=== PATIENT | male | born 1985 | race Caucasian/White ===

== ENCOUNTER 2018-11-14 08:54 | Emergency (ER) | payer SELFPAY ==
[2018-11-14 09:00] VITALS: BP 105/90; PULSE 89; RESP 16; TEMP 36.6; O2SAT 97
--- NOTE | 2018-11-14 09:15 | W.ED.GENAD ---
Discharge Plan Disposition Patient Disposition: HOME Condition: Stable Discharge Details Chief Complaint: Orthopedic Clinical Impression: Chronic neck pain, Cervical paraspinal muscle spasm Primary Care Provider: None,None ED Provider: Latia Rivero Home Meds and New Rx's Prescriptions: New ibuprofen 600 mg tablet 600 mg PO QID PRN (Reason: pain) Qty: 20 RF: 0 methocarbamol 750 mg tablet 750 mg PO QID PRN (Reason: muscle spasm) Qty: 10 RF: 0 Discharge Instructions Instructions: Cervical Strain (ED), Chronic Neck Pain (GEN) Additional Instructions: Alternate ice and heat to the affected area several times daily for 20 minutes at a time. Take the ibuprofen and methocarbamol as needed and directed. Follow-up with physical therapy for evaluation and treatment. You will receive a call from care management regarding a follow-up appointment with a primary care doctor. Return immediately to the emergency department if you develop any worsening or new concerning symptoms. Stand Alone Forms: Physical Therapy Referral Discharge Data Discharge Date/Time-TO BE ENTERED AT DEPARTURE: 11/14/18 10:01 Discharge Physician: Latia Rivero Medical Decision Making 33yo M w/ R sided neck and shoulder pain x 6 months. 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 Denies chest pain or paresthesias/weakness. Pt has limitation of head/neck rotation due to pain. No focal deficits. Neurovascularly intact. No rash, infection or trauma noted. Appears c/w cervical/shoulder strain/spasm. Do not see an indication for imaging and pt is agreeable. Pt took motrin prior to arrival. Will give a dose of muscle relaxer. Will send with script for NSAIDs, muscle relaxers and physical therapy if no relief with meds. Pt placed on care management list for f/u with a pcp and to return here if worse. HPI General Mode of arrival: ambulatory. Date/Time Provider Initiated Documentation: 11/14/18 08:57. Limitations to Documentation: no limitations. Information obtained by: patient. HPI Narrative: Pt is a 33yo M who presents to the ED w/ a c/o R sided neck and R upper shoulder pain for the past 6 months, pain worse this morning. Pt states he works as a cardroom manager and is frequently lifting and carrying heavy pots and boxes over his shoulders. Pt denies weakness or numbness in arm. He denies fever. He has taken motrin and tylenol occasionally for this pain. Related Data Home Medications Medication Instructions Recorded Confirmed ibuprofen 600 mg PO QID PRN #20 tab 11/14/18 methocarbamol 750 mg PO QID PRN #10 tab 11/14/18 Previous Rx's Medication Instructions Recorded ibuprofen 600 mg PO QID PRN #20 tab 11/14/18 methocarbamol 750 mg PO QID PRN #10 tab 11/14/18 Allergies Allergy/AdvReac Type Severity Reaction Status Date / Time No Known Allergies Allergy Unverified 03/01/16 16:48 General Stated Complaint: Orthopedic MARSHA: 4 Review of Systems Review of Systems All systems reviewed & are unremarkable except as noted in HPI and below Constitutional Reports as per HPI, Denies chills and Denies fever(s) Eyes Denies blurry vision ENT Denies dizziness, Denies sore throat and Denies throat swelling Cardiovascular Denies chest pain and Denies dyspnea Respiratory Denies cough and Denies dyspnea Gastrointestinal Denies abdominal pain, Denies diarrhea and Denies vomiting Genitourinary Denies hematuria and Denies dysuria Musculoskeletal Denies back pain, Denies numbness and Reports other (neck pain) Comments: R shoulder pain Integumentary/Breasts Denies lesions and Denies rash Neurologic Denies dizziness, Denies focal weakness and Denies numbness Allergic/Immunologic Denies throat swelling [facility] Medical History No significant past medical history (Acute) Surgical History No significant past surgical history (Acute) Social History Smoking/Tobacco Use Status: Current every day Tobacco Type: cigarettes Alcohol Intake: never Drug use: Never Substance use type: marijuana Do you feel safe in your relationship?: Yes Exam Const General: cooperative, healthy appearing and no acute distress HENMT Head: normal to inspection Face and sinus: normal facial exam Eyes General: appearance normal, both eyes and all related structures Pupils: PERRL EOM: EOM intact bilaterally Neck Neck: normal visual inspection and No submandibular swelling Lymphatic: no lymphadenopathy noted Chest Chest: normal inspection of the chest and no tenderness Resp Effort & Inspection: normal respiratory effort and able to speak in complete sentences Auscultation: clear to auscultation bilaterally Cardio Rate: regular rate Rhythm: regular rhythm GI Inspection: normal to inspection Palpation: soft, not firm, not rigid and nontender Auscultation: normal bowel sounds Male General Exam: Yes normal external exam Back/Spine/Pelvis Cervical Spine: cervical muscular tenderness (R inferior paraspinal region near insertion of trapezius), pain with cervical ROM (Pain/limitation w/ R head rotation/sidebending/extension), No cervical spasm and No cervical spinal tenderness Thoracic/Lumbar Spine: thoracic and lumbar spine normal to inspection Pelvis: no pain with anterior-posterior compression Skin General skin exam: no rashes or lesions noted Neuro General: alert, awake and oriented x3 Cognition: normal cognition Speech: speech normal Motor: muscle tone normal throughout Sensory Exam: no sensory deficits noted Extrem General: normal to inspection, full ROM, normal capillary refill, no calf tenderness bilaterally and no edema Other: Pain in R trapezius with palpation and abduction and range of motion of R shoulder. B/L radial/ulnar pulses intact. No rashes, infection or trauma noted. Psych Appearance: grossly normal Mental Status: mental status grossly normal Speech and Movement: speech and movement normal Affect: normal affect Course Vital Signs Temperature 97.9 F 11/14/18 09:00 Pulse 89 11/14/18 09:00 Respiratory Rate 16 11/14/18 09:00 Blood Pressure 105/90 11/14/18 09:00 Pulse Oximetry 97 11/14/18 09:00 Temperature 97.9 F 11/14/18 09:00 Pulse 89 11/14/18 09:00 Respiratory Rate 16 11/14/18 09:00 Respiratory Effort Non-Labored 11/14/18 09:00 Blood Pressure 105/90 11/14/18 09:00 Blood Pressure Position Sitting 11/14/18 09:00 Pulse Oximetry 97 11/14/18 09:00 Oxygen Delivery Method Room Air 11/14/18 09:00 Oxygen Flow Rate 0 11/14/18 09:00
[2018-11-14] MEDS: Methocarbamol 500 MG TAB PO (09:47)
== END 2018-11-14 10:01 | disposition home or self-care (01) ==
PROVIDERS: Emergency Provider Physician Assistant
DX: M62.838 Other muscle spasm (principal); M54.2 Cervicalgia; G89.29 Other chronic pain; X50.3XXA Overexertion from repetitive movements, initial encounter
CPT/HCPCS: 99283

== ENCOUNTER 2019-03-19 08:15 | Emergency (ER) | payer SELFPAY ==
[2019-03-19 08:23] VITALS: BP 144/97; PULSE 88; RESP 16; TEMP 36.7; O2SAT 96
[2019-03-19] MEDS: Bupivacaine 0.5% Pres-Free 30 ML VIAL (08:55)
[2019-03-19] MEDS: Ibuprofen 600 MG TAB PO (09:01)
--- NOTE | 2019-03-19 09:25 | ED.GENADUL_ITS ---
Discharge Plan Disposition Patient Disposition: HOME Condition: Improving Discharge Details Chief Complaint: Nk/Back Pain Clinical Impression: Cervical myofascial strain Primary Care Provider: None,None ED Provider: Ba Calero Home Meds and New Rx's Prescriptions: No Action ibuprofen 600 mg tablet 600 mg PO QID PRN (Reason: pain) Qty: 20 RF: 0 Discharge Instructions Instructions: Cervical Strain (ED) Additional Instructions: 1. Drink plenty of fluids. 2. Ibuprofen 600 mg every 6 hours and/or acetaminophen 1000 mg every 4 hours up to 5 times a day as needed for pain. 3. Wear sling as needed for comfort. 4. Follow-up with a physical therapist for management of recurrent pain. Return for worsening pain, fever, palpitations, arm tingling or numbness, or for any other concerning condition Discharge Data Discharge Date/Time-TO BE ENTERED AT DEPARTURE: 03/19/19 08:55 Medical Decision Making 33-year-old gentleman presents with acute on chronic pain associated with recent traumatic injury. History and exam suggestive of soft tissue injury/cervical strain. Clinically improved after a paracervical soft tissue injection was performed by myself. Reviewed outpatient management including using a sling as needed, OTC analgesia, and follow-up with physical therapy. Given usual customary return instructions prior to discharge. Medical Records Medical records reviewed: Yes I reviewed the patient's medical records. HPI 43-year-old gentleman with a past medical history which includes a previous injury to his right head and neck with chronic recurrent paresthesias and pain in his right neck, trapezius, and proximal upper extremity. 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 He describes slipping and falling with impact to his right parietal region and shoulder. He describes having a concussion with headache and mild disorientation. The symptoms have resolved. However, he has had persistent, accelerating pain in his right inferior lateral neck, trapezius, and upper extremity. Symptoms are identical nature to his chronic pain from his remote injury but worse. He has taken ibuprofen once with no significant improvement in symptoms. Otherwise, has had no other intervention. Has occasional global paresthesias of his hand. Denies other significant injury including no other extremity injury, chest contusion, abdominal contusion,, or back injury. Denies fever/chills, dyspnea, palpitations, focal extremity weakness General Date/Time Provider Initiated Documentation: 03/19/19 08:23 . Related Data Home Medications Medication Instructions Recorded Confirmed ibuprofen 600 mg PO QID PRN #20 tab 11/14/18 03/19/19 Previous Rx's Medication Instructions Recorded ibuprofen 600 mg PO QID PRN #20 tab 11/14/18 Allergies Allergy/AdvReac Type Severity Reaction Status Date / Time No Known Allergies Allergy Unverified 03/19/19 08:57 General Stated Complaint: Nk/Back Pain MARSHA: 4 Review of Systems All systems reviewed & are unremarkable except as noted in HPI and below PFSH Medical History No significant past medical history (Acute) Surgical History No significant past surgical history (Acute) Social History Smoking/Tobacco Use Status: Current every day Tobacco Type: cigarettes Alcohol Intake: never Drug use: Never Substance use type: marijuana Do you feel safe at home: Yes Do you feel safe in your relationship?: Yes Exam Narrative Exam Narrative: Nursing note and vital signs have been reviewed and noted. GENERAL: alert, active, no acute distress, well -hydrated, well-nourished HEENT: atraumatic/normocephalic, PERRLA, EOMI, conjunctiva clear, external ears/canals normal, nasal mucosa normal NECK: supple, full range of motion, no mass, normal lymphadenopathy, no thyromegaly; moderate right paraspinal soft tissue tenderness which reproduces subjective pain. CARDIOVASCULAR: nl pulses, no edema PULMONARY: nl effort, no audible wheezing or stridor, ABDOMEN: non-distended, EXTREMITY: normal muscle tone, all joints with FROM, no deformity; tenderness along the right superior trapezius extending to the glenohumeral joint. There is no evidence of significant bony injury or joint disruption. Normal neurovascular exam distally. SKIN: no exanthem appreciated NEURO: gross motor exam normal, normal stance and gait PSYCH: alert and oriented, Course Vital Signs Vital signs: Vital Signs Temperature 98.1 F 03/19/19 08:23 Pulse 88 03/19/19 08:23 Respiratory Rate 16 03/19/19 08:23 Blood Pressure 144/97 H 03/19/19 08:23 Pulse Oximetry 96 03/19/19 08:23 Temperature 98.1 F 03/19/19 08:23 Temperature Source Skin 03/19/19 08:23 Pulse 88 03/19/19 08:23 Respiratory Rate 16 03/19/19 08:23 Respiratory Effort Non-Labored 03/19/19 08:55 Blood Pressure 144/97 H 03/19/19 08:23 Blood Pressure Position Sitting 03/19/19 08:23 Pulse Oximetry 96 03/19/19 08:23 Oxygen Delivery Method Room Air 03/19/19 08:23 Oxygen Flow Rate 0 03/19/19 08:23 Pain Level 7 03/19/19 09:01 Procedures Other Description: Paracervical soft tissue injection. Landmarks identified midline at C7. Skin prepped and sterile fashion using alcohol swabs. Skin locally anesthetized with free spray. 1.5 ml 0.5% bupivacaine injected bilaterally into soft tissue after aspirating for inadvertent vessel puncture. Patient tolerated procedure well without any complications. Clinical improvement on reassessment.
== END 2019-03-19 09:07 | disposition home or self-care (01) ==
LOC: ER 08:33
PROVIDERS: Emergency Provider Emergency Medicine
DX: S16.1XXA Strain of muscle, fascia and tendon at neck level, initial encounter (principal); W01.0XXA Fall on same level from slipping, tripping and stumbling without subsequent striking against object, initial encounter
CPT/HCPCS: 99282; L3650

== ENCOUNTER 2019-07-01 10:24 | Emergency (ER) | payer SELFPAY ==
[2019-07-01 10:31] VITALS: BP 108/72; PULSE 97; RESP 16; TEMP 36.6; O2SAT 98
--- NOTE | 2019-07-01 10:45 | DI.RAD_ITS ---
EXAM: XR RIBS RT W PA LAT CHEST CLINICAL HISTORY: right rib pain, cough TECHNIQUE: COMPARISON: No exams were available for comparison FINDINGS: PA and lateral chest and three views of the ribs were obtained. The heart is not enlarged. The lung s are clear and well expanded. No pleural effusion. No evidence of rib fracture. IMPRESSION:
--- NOTE | 2019-07-01 10:46 | W.ED.GENAD ---
Discharge Plan Disposition Patient Disposition: HOME Condition: Stable Discharge Details Chief Complaint: Chest/Rib Clinical Impression: Chest injury Primary Care Provider: None,None ED Provider: Millicent Parada Home Meds and New Rx's Prescriptions: No Action ibuprofen 600 mg tablet 600 mg PO QID PRN (Reason: pain) Qty: 20 RF: 0 Discharge Instructions Instructions: Chest Wall Pain (ED) Additional Instructions: Ice or heat for discomfort as discussed. Motrin or Tylenol for discomfort if needed. Rest activities as tolerated. Deep breathing exercises every 1-2 hours as discussed. Follow-up promptly with your primary care doctor for any persistence of pain. Your x-ray does not reveal obvious fracture today or any signs of pneumonia in the lung. Consider stopping smoking. Return for any worsening, concerns or alarming symptoms sooner if needed Discharge Data Discharge Date/Time-TO BE ENTERED AT DEPARTURE: 07/01/19 12:36 Medical Decision Making Is a very pleasant 33-year-old gentleman presenting for complaints of right rib pain for the last week. Patient reports he noted onset of pain while snowboarding while twisting. Patient denies any specific fall or injury which he recalls. Patient denies difficulty being of shortness of breath or wheezing. Patient does have a baseline cough which is present on a daily basis which she attributes to smoking marijuana and cigarettes. Patient reports cough is unchanged. Patient does report moderate pain while coughing. Patient also reports increase in pain when changing position. On exam patient has focal tenderness in the right anterior chest wall. No associated abdominal pain. Clear breath sounds. Will check chest x-ray and include ribs on the right. Patient is in no apparent distress. Patient has no increase in respiratory effort. Offered Motrin or Tylenol at this time and declines. Vital signs reviewed and stable. Patient's x-ray of chest as well as right ribs reveal no acute abnormalities. No obvious fracture identified. No mass or signs of pneumonia. Offered patient conservative treatments in addition to Lidoderm patches. Patient declines Lidoderm patches. Do breathing exercises discussed. Expectations of improvement discussed. Use of ice and heat discussed. Patient reports his understanding. Patient remained stable throughout his emergency room course. Patient requesting discharge home at this time. The patient was stable and requested discharge. Prior to discharge, my usual and customary return precautions were reviewed with the patient - this included follow-up instructions and reasons to return to the Emergency Department if conditions worsens, does not improve as expected, or other new concerns arise. HPI General Date/Time Provider Initiated Documentation: 07/01/19 10:34. HPI Narrative: This is a 33-year old patient presenting to the emergency room today for right chest wall pain. Patient reports he may have injured his right chest wall when twisting while snowboarding 1 week ago. Patient was aware of pain at the time but denies any focal trauma. Patient reports since that time he is been aware of pain when coughing or taking deep breaths. Patient also reports increase in pain when changing positions. Patient indicates a focal area on the right anterior chest wall as maximum site of pain. Denies any back pain. Patient does have a baseline cough daily which he attributes to smoking marijuana. Patient also smokes cigarettes. Patient denies vaping. Patient denies difficulty breathing shortness of breath or wheezing. Patient does have a history of asthma as a child but reports no sensation of tightness in his chest. Patient denies any chest pain at rest. No abdominal pain, nausea, vomiting associated. No bowel changes. Urinating without difficulty. No hematuria. No other concerns or complaints at this time. Denies headache, dizziness or upper respiratory symptoms. No ill feeling. Related Data Home Medications Medication Instructions Recorded Confirmed ibuprofen 600 mg PO QID PRN #20 tab 11/14/18 07/01/19 Previous Rx's Medication Instructions Recorded ibuprofen 600 mg PO QID PRN #20 tab 11/14/18 Allergies Allergy/AdvReac Type Severity Reaction Status Date / Time No Known Allergies Allergy Unverified 07/01/19 10:35 General Stated Complaint: Chest/Rib MARSHA: 3 Review of Systems All systems reviewed & are unremarkable except as noted in HPI and below Constitutional Constitutional: Denies chills, Denies fatigue, Denies fever(s), Denies headache(s), Denies malaise and Denies snoring ENT Ears, Nose, Mouth, and Throat: Denies otalgia, Denies headache(s), Denies nasal congestion, Denies neck pain, Denies sinus pain, Denies sinus pressure and Denies sore throat Cardiovascular Cardiovascular: Denies dyspnea and Denies dyspnea on exertion Respiratory Respiratory: Reports cough, Denies excessive phlegm production, Reports pain on inspiration, Reports pain with cough, Denies dyspnea, Denies dyspnea on exertion, Denies snoring and Denies wheezing Gastrointestinal Gastrointestinal: Denies abdominal pain, Denies diarrhea, Denies nausea and Denies vomiting Genitourinary Genitourinary: Denies hematuria, Denies dysuria, Denies urinary frequency and Denies urinary hesitancy Musculoskeletal Musculoskeletal: Denies abnormal gait, Denies back pain and Denies neck pain Integumentary/Breasts Skin/Breast: Denies erythema and Denies rash Neurologic Neurologic: Denies abnormal gait and Denies headache(s) Endocrine Endocrine: Denies fatigue Allergic/Immunologic Allergic/Immunologic: Denies wheezing [facility] Medical History No significant past medical history (Acute) Social History Smoking/Tobacco Use Status: Current every day Tobacco Type: cigarettes Alcohol Intake: never Drug use: Daily Substance use type: marijuana Do you feel safe at home: Yes Do you feel safe in your relationship?: Yes Exam Narrative Exam Narrative: CONST: Healthy appearing patient, in no acute distress. Well hydrated. Alert and oriented. HENMT: Head nomocephalic, normal to inspection. Atraumatic. Hearing grossly normal. TMs appear normal bilaterally. No pharyngeal erythema. EYES: General normal appearance. Alignment normal. Eyelids normal. Conjunctiva normal. NECK: Normal visual inspection. FROM. Trachea midline. No Midline tenderness. No cervical lymphadenopathy CHEST: Normal insepection of the chest. Pain with palpation of the right anterior chest wall, reproducible with palpation. No obvious crepitus. No overlying skin changes. RESP: Normal respiratory effort. Speaking full sentences. No cough. No audible wheezing. No retractions. Breath sounds clear, full and equal bilaterally. No wheezing, rhonchi or rales. CARDIO: No JVD. No murmur, regular rate and rhythm GI: Bowel sounds present in all 4 quadrants, abdomen is soft, nontender. No peritoneal signs, rebound or guarding. Specifically no tenderness in the right upper quadrant. Back: No CVA tenderness present bilaterally SKIN: Normal. Dry. No rashes. NEURO: Alert and awake. Speech clear. PSYCH: Normal affect. Cooperative. Course Vital Signs Vital signs: Vital Signs Temperature 36.6 C 07/01/19 10:31 Pulse 97 H 07/01/19 10:31 Respiratory Rate 16 07/01/19 10:31 Blood Pressure 108/72 07/01/19 10:31 Pulse Oximetry 98 07/01/19 10:31 Temperature 36.6 C 07/01/19 10:31 Temperature Source Skin 07/01/19 10:31 Pulse 97 H 07/01/19 10:31 Respiratory Rate 16 07/01/19 10:31 Respiratory Effort Non-Labored 07/01/19 10:31 Blood Pressure 108/72 07/01/19 10:31 Pulse Oximetry 98 07/01/19 10:31 Oxygen Delivery Method Room Air 07/01/19 10:31 Oxygen Flow Rate 0 07/01/19 10:31 Pain Level 9 07/01/19 10:31
--- NOTE | 2019-07-01 12:09 | DI.VRAD_ITS ---
PROCEDURE INFORMATION: Exam: XR Right Ribs Exam date and time: 07/01/2019 10:58 AM Age: 33 years old Clinical indication: Other: Rib pain after coughing; Painful respiration; Additional info: Bb marker used on rib imaging for pain site TECHNIQUE: Imaging protocol: XR Right ribs. Views: 2 views. COMPARISON: No relevant prior studies available. FINDINGS: Bones/joints: There is no evidence of acute fracture. Soft tissues: Normal. IMPRESSION: There is no evidence of acute fracture. PROCEDURE INFORMATION: Exam: XR Chest, 2 Views Exam date and time: 07/01/2019 10:58 AM Age: 33 years old Clinical indication: Other: Rib pain after coughing; Painful respiration; Additional info: Bb marker used on rib imaging for pain site TECHNIQUE: Imaging protocol: XR of the chest Views: 2 views. COMPARISON: No relevant prior studies available. FINDINGS: Lungs: Unremarkable. No consolidation. Pleural space: Unremarkable. No pleural effusion. No pneumothorax. Heart/Mediastinum: Unremarkable. No cardiomegaly. Bones/joints: Unremarkable. IMPRESSION: No acute findings. Dictated and Authenticated by: Leeroy Chairez MD. Ordering:MHEUL Ricks MD
[2019-07-01 12:36] VITALS: BP 112/64; PULSE 92; RESP 16; TEMP 36.7; O2SAT 97
== END 2019-07-01 12:36 | disposition home or self-care (01) ==
PROVIDERS: Emergency Provider Physician Assistant
DX: S29.091A Other injury of muscle and tendon of front wall of thorax, initial encounter (principal); X50.9XXA Other and unspecified overexertion or strenuous movements or postures, initial encounter; Y93.23 Activity, snow (alpine) (downhill) skiing, snowboarding, sledding, tobogganing and snow tubing; F17.210 Nicotine dependence, cigarettes, uncomplicated
CPT/HCPCS: 99283; 71046; 71100

== ENCOUNTER 2021-03-22 07:45 | Emergency (ER) | payer SELFPAY ==
[2021-03-22 07:49] VITALS: BP 128/77; PULSE 88; RESP 16; TEMP 36.9; O2SAT 98
--- NOTE | 2021-03-22 08:15 | ED.GENADUL_ITS ---
Discharge Plan Disposition Patient Disposition: HOME Condition: Stable Discharge Details Clinical Impression: Corneal abrasion, right Primary Care Provider: None,None ED Provider: Marcos Cárdenas Home Meds and New Rx's Prescriptions: New erythromycin 5 mg/gram (0.5 %) ointment 0.5 inch ophthalmic (eye) QID Qty: 3.5 RF: 0 Continued ibuprofen 600 mg tablet 600 mg PO QID PRN (Reason: pain) Qty: 20 RF: 0 Discharge Instructions Instructions: Erythromycin (Into the eye), Corneal Abrasion (ED) Additional Instructions: Please follow-up with eye home health care respiratory therapist. Use erythromycin: apply 0.5inch to right eye 4 times a day for the next 1 week. Return to the emergency department immediately for any worsening or new concerning symptoms. I recommend that you have COVID-19 vaccination as soon as possible to prevent severe COVID-19 disease. Your tetanus vaccination is up-to-date - last given 2015. Stand Alone Forms: Work Release Referrals: [facility] [Outside] Medical Decision Making 35yo m right eye corneal abrasion. Tetatraine applied and pain improved. Erythromycin administered. Tetanus utd. Usual and customary discharge instructions reviewed the patient. HPI General Mode of arrival: ambulatory . Date/Time Provider Initiated Documentation: 03/22/21 08:05 . Limitations to Documentation: no limitations . Information obtained by: patient . HPI Narrative: 35yo m here with injury to right eye. 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 He had pain in his eye since injury. Pain worse today now moderate. No modifiers. No blurred vision. No other symptoms. Related Data Home Medications Medication Instructions Recorded Confirmed ibuprofen 600 mg PO QID PRN #20 tab 11/14/18 03/22/21 erythromycin 0.5 inch OPHTHALMIC (EYE) QID #3.5 03/22/21 g Previous Rx's Medication Instructions Recorded ibuprofen 600 mg PO QID PRN #20 tab 11/14/18 erythromycin 0.5 inch OPHTHALMIC (EYE) QID #3.5 03/22/21 g Allergies Allergy/AdvReac Type Severity Reaction Status Date / Time No Known Allergies Allergy Unverified 03/22/21 07:53 General Stated Complaint: EyeProblem MARSHA: 4 Review of Systems Constitutional Constitutional: Denies headache(s) Eyes Eyes: Reports as per HPI ENT Ears, Nose, Mouth, and Throat: Denies headache(s) Neurologic Neurologic: Denies headache(s) PFS Medical History No significant past medical history Surgical History No significant past surgical history Social History Smoking/Tobacco Use Status: Current every day Tobacco Type: cigarettes Smoking risk assessment performed?: Yes Alcohol Intake: never Drug use: Daily Substance use type: marijuana Do you feel safe at home: Yes Do you feel safe in your relationship?: Yes Exam Const General: cooperative and no acute distress HENMT Head: normocephalic and atraumatic Mouth: moist mucous membranes Eyes Conjunctivae: conjunctivae normal Sclera: normal sclerae Cornea: corneas abnormal on the right fluorescein used and abrasion linear and at the following clock position (10); with no foreign body noted and without ulcerations Pupils: PERRL EOM: EOM intact bilaterally Neuro General: patient alert, patient awake and tone normal Course Vital Signs Vital signs: Vital Signs Temperature 36.9 C 03/22/21 07:49 Pulse 88 03/22/21 07:49 Respiratory Rate 16 03/22/21 07:49 Blood Pressure 128/77 03/22/21 07:49 Pulse Oximetry 98 03/22/21 07:49 Temperature 36.9 C 03/22/21 07:49 Temperature Source Skin 03/22/21 07:49 Pulse 88 03/22/21 07:49 Respiratory Rate 16 03/22/21 07:49 Respiratory Effort 03/22/21 07:49 Blood Pressure 128/77 03/22/21 07:49 Blood Pressure Position Sitting 03/22/21 07:49 Pulse Oximetry 98 03/22/21 07:49 Pain Level 6 03/22/21 07:49
[2021-03-22] MEDS: Tetracaine 0.5% 4 ML BTL (08:18)
[2021-03-22] MEDS: Fluorescein STRIPS 100/BOX 1 MG (08:18)
--- NOTE | 2021-03-22 08:21 | NUR.NOTE ---
Nursing Note: Referral given to Care Management to establish care with routine follow up. Rosario Sainz
[2021-03-22] MEDS: Erythromycin Ophth Oint 3.5 GM TUBE (08:27)
== END 2021-03-22 08:34 | disposition home or self-care (01) ==
PROVIDERS: Emergency Provider Student in an Organized Health Care Education/Training Program
DX: S05.01XA Injury of conjunctiva and corneal abrasion without foreign body, right eye, initial encounter (principal); W22.8XXA Striking against or struck by other objects, initial encounter
CPT/HCPCS: 99283

== ENCOUNTER → 2021-12-17 20:09 | Outpatient (CLI) | payer OTHER, SELFPAY ==
--- NOTE | 2021-12-17 14:30 | DI.RAD_ITS ---
Exam(s) XR FINGER RT INDEX EXAM: XR FINGER RT INDEX CLINICAL HISTORY: PERSISTENT PAIN, SPRAIN OF RT INDEX FINGER--S63.610A TECHNIQUE: COMPARISON: No exams were available for comparison FINDINGS: Three views were obtained. There is no evidence of acute fracture or dislocation. IMPRESSION: RADIATION DOSE DELIVERED: Total DLP
== END ==
PROVIDERS: Visit Provider Nurse Practitioner Family
DX: S63.610A Unspecified sprain of right index finger, initial encounter (principal); X58.XXXA Exposure to other specified factors, initial encounter
CPT/HCPCS: 73140

== ENCOUNTER 2022-08-10 16:22 | Emergency (ER) | payer OTHER, SELFPAY ==
[2022-08-10 16:25] VITALS: PULSE 87; RESP 18; TEMP 36.7; O2SAT 98
[2022-08-10 16:27] VITALS: BP 136/84
--- NOTE | 2022-08-10 16:30 | DI.RAD_ITS ---
Exam(s) XR FINGER LT INDEX EXAM: XR FINGER LT INDEX CLINICAL HISTORY: pain s/p crush injury. TECHNIQUE: 2D digital imaging was performed. COMPARISON: CR XR FINGER RT INDEX from 12/17/2021 FINDINGS: 3 views There is an acute appearing avulsion fracture off the dorsal base of the distal phalanx with displace ment of the fracture fragment. No radiopaque foreign body. No osseous lesions. IMPRESSION: Displaced fracture dorsal base of the distal phalanx. Mild flexion deformity of the distal phalanx n oted. DATA REPOSITORY: RADIATION DOSE DELIVERED:
--- NOTE | 2022-08-10 16:44 | ED.GENADUL_ITS ---
Discharge Plan Disposition Patient Disposition: Home Discharge Details Clinical Impression: Closed fracture of phalanx of left index finger Primary Care Provider: None,None ED Provider: Oleg Blevins Home Meds and New Rx's Prescriptions: Discontinued erythromycin 5 mg/gram (0.5 %) ointment 0.5 inch ophthalmic (eye) QID Qty: 3.5 0RF Patient Comments: not taking Discharge Instructions Instructions: Finger Fracture (ED) Additional Instructions: Call orthopedics tomorrow to arrange a follow up appointment if you feel more ill, have severe wosening pain or new pain such as chest pain return to the emergency department Medical Decision Making 36 yo male who denies chronic medical problems comes in after he was at work and crushed his left infex finger between two pieces of metal. Denies falls or other injuries. HE arrives stable,caox4 and only has pain in the finger, no other pain elsewhere. His distal left index finger is swollen and tender from the dip joint distally. He has a skin abrasion 2mm in circumference over the anterior pip joint, it is superficial and has no bone visible. HE has intact sensation and cap refill. HE is unable to extend at the dip joint, is able to flex and has intact rom in dip and mcp joint. Will proceed with xrays to evaluate for fracture xray on my read shows fracture at posterior dip joint. Will place in splint, will have him f/u with ortho and return precautions given Differential Diagnosis Differential Diagnosis: fracture, contusion, tendon injury Imaging Data Radiologic Study: Attestation: I personally reviewed and interpreted this imaging study as follows: Imaging: X-Ray My impression: fracture at the posterior dip joint HPI General Mode of arrival: ambulatory . Date/Time Provider Initiated Documentation: 08/10/22 16:37 . Limitations to Documentation: no limitations . Information obtained by: patient . History of Present Illness 36 year old M presents to the emergency department with the chief complaint of left index finger injury, described as moderate, Quality is described as aching, and is localized to the left (hand). Patient started experiencing this hour(s) (1) and it has been constant. Rest improves symptom(s), Movement worsens symptoms . Patient notes no other symptoms.. Patient did receive the following treatments prior to arrival, none Related Data Allergies Allergy/AdvReac Type Severity Reaction Status Date / Time No Known Allergies Allergy Unverified 08/10/22 16:27 General Stated Complaint: Orthopedic MARSHA: 4 Review of Systems All systems reviewed & are unremarkable except as noted in HPI and below Constitutional Constitutional: Denies chills, Denies fever(s) and Denies weakness Cardiovascular Cardiovascular: Denies chest pain and Denies dyspnea Respiratory Respiratory: Denies dyspnea Gastrointestinal Gastrointestinal: Denies abdominal pain, Denies nausea and Denies vomiting Neurologic Neurologic: Denies weakness PFS All Active Problems (Updated 08/10/22 @ 17:02 by Oleg Blevins MD) Closed fracture of phalanx of left index finger (Acute) Sprain of right index finger (Acute) Medical History Chest injury Corneal abrasion, right No significant past medical history Surgical History No significant past surgical history Social History Smoking/Tobacco Use Status: Current every day Tobacco Type: cigarettes Smoking risk assessment performed?: Yes Alcohol Intake: never Drug use: Daily Substance use type: marijuana Do you feel safe at home: Yes Do you feel safe in your relationship?: Yes Exam Const General: no acute distress Orientation: alert HENMT Head: normal to inspection Ears: external ears normal General nose exam: external nose normal Mouth: moist mucous membranes Eyes General: appearance normal, both eyes and all related structures Neck Neck: normal visual inspection Resp Effort & Inspection: normal respiratory effort and able to speak in complete sentences Cardio Rate: regular rate Skin General skin exam: no rashes or lesions noted Neuro General: patient alert and patient oriented x3 Extrem General: capillary refill normal Psych Mental Status: mental status grossly normal Course Vital Signs Vital signs: Vital Signs Temperature 36.7 C 08/10/22 16:25 Pulse 87 08/10/22 16:25 Respiratory Rate 18 08/10/22 16:25 Pulse Oximetry 98 08/10/22 16:25 Temperature 36.7 C 08/10/22 16:25 Temperature Source Oral 08/10/22 16:25 Pulse 87 08/10/22 16:25 Respiratory Rate 18 08/10/22 16:25 Respiratory Effort Normal, Non-Labored 08/10/22 16:27 Blood Pressure 136/84 08/10/22 16:27 Pulse Oximetry 98 08/10/22 16:25 Oxygen Delivery Method Room Air 08/10/22 16:25 Oxygen Flow Rate 0 08/10/22 16:25 PAWSS Have you Been Recently Intoxicated or Drunk Within the Last 30 days?: No Have you Ever Experienced Previous Episodes of Alcohol Withdrawal?: No Have you ever Experienced Withdrawal Seizures?: No Have you ever Experienced Delirium Tremens(DT)s?: No Have you ever undergone Alcohol Rehabilitation Treatment (i.e, inpt ot outpatient treatment programs)?: No Have you ever Experienced Blackouts?: No Have you ever Combined Alcohol with other Downers within the last 90 days?: No Have you ever Combined Alcohol with any other Substance of Abuse during the last 90 days?: No Positive Blood Alcohol level on Presentation? [PCS.BAL]: No Evidence of Increased Autonomic Activity (i.e. HR>120, tremor, sweating, agitation, nausea)?: No Result: 0
== END 2022-08-10 17:18 | disposition home or self-care (01) ==
PROVIDERS: Emergency Provider Emergency Medicine
DX: S67.191A Crushing injury of left index finger, initial encounter (principal); S62.631A Displaced fracture of distal phalanx of left index finger, initial encounter for closed fracture; Y99.0 Civilian activity done for income or pay; W23.0XXA Caught, crushed, jammed, or pinched between moving objects, initial encounter
CPT/HCPCS: 99283; 73140

== ENCOUNTER 2022-08-17 06:08 | Day surgery (SDC) | payer OTHER, SELFPAY ==
[2022-08-17 06:17] VITALS: BP 151/101; PULSE 87; RESP 18; TEMP 37; O2SAT 99
--- NOTE | 2022-08-17 06:29 | W.ANESPRE ---
General Info Date of Service Date Performed: 08/17/22 Height: 5 ft 9 in Weight: 82.2 kg Body Mass Index (BMI): 26.7 Surgical Procedure: Operation Date: 08/17/22 07:40 Proposed Procedure Side Surgeon p Closed Reduction and Pinning LIF Left Judson Gomez MD Meds Allergies and Home Medications Allergies Allergy/AdvReac Type Severity Reaction Status Date / Time No Known Allergies Allergy Unverified 08/17/22 06:32 Home Medication Medication Instructions Recorded Unknown [No Known Home Meds] 08/13/22 Current Visit Medications: Current Medications Generic Name Dose Route Start Last Admin Trade Name Freq PRN Reason Stop Dose Admin Ringer's Solution 1,000 mls @ 80 mls/hr 08/14/22 06:00 IV 09/12/22 23:59 INFUSION MARY IV Miscellaneous Supplies 1 each 08/14/22 06:00 Iv Access IV 09/12/22 23:59 DIRECTED MARY Sodium Chloride 0 ml 08/14/22 06:00 Normal Saline Flush 10 Ml Syr IV 09/12/22 23:59 PRN PRN Sodium Chloride 0 ml 08/14/22 06:00 Normal Saline 10 Ml Vial IJ 09/12/22 23:59 DIRECTED PRN Sterile Water 0 ml 08/14/22 06:00 Water,Injection,Sterile 10 Ml Vial IJ 09/12/22 23:59 DIRECTED PRN PFSH Active Problems Active Problems: Problem Status Onset Code Sprain of right index finger S63.610A Closed fracture of phalanx of left index finger S62.601A Closed mallet fracture of distal phalanx of finger of left hand S62.639A, M20.012 Medical History Medical History Chest injury Pt. states it was a muscle injury in his back Corneal abrasion, right No significant past medical history Surgical History Surgical History No significant past surgical history Tobacco Smoking/Tobacco Use Status: Current every day Tobacco Type: cigarettes Alcohol Alcohol Intake: current Alcohol intake frequency: holidays/special occasions only Substance Use Substance use: Daily Substance use type: marijuana Details: alcohol t-2 marijuana t-1 Vital Signs and Lab Results Vital Signs Most Recent Vital Signs in EMR: Most Recent Vital Signs Temp Pulse Resp BP Pulse Ox 37.0 C 87 18 151/101 H 99 08/17/22 06:17 08/17/22 06:17 08/17/22 06:17 08/17/22 06:17 08/17/22 06:17 Lab Results Blood Type / Crossmatch: No Data to Display Complete Blood Count: No Data to Display Complete Metabolic Panel: No Data to Display Liver Function Panel: No Data to Display Coagulation Panel: No Data to Display Cardiac Panel: No Data to Display Arterial Blood Gas: No Data to Display Venous Blood Gas: No Data to Display Pancreas Panel: No Data to Display Thyroid Panel: No Data to Display Infectious Disease: No Data to Display Blood Cultures: No Data to Display Toxicology Panel: No Data to Display Anesthesia Assessment and Plan Anesthesia History Personal History: No History of General Anesthesia Family History: No Family History of Anesthesia Complications Exercise Tolerance Exercise Tolerance: Metabolic Equivalents>4 Cardiac & Pulmonary Exam Cardiac Exam: Normal S1/S2 Heart Sounds Pulmonary Exam: Clear Bilateral Breath Sounds Implantable Cardiac Device Does patient have a Pacemaker or an ICD?: No Airway Exam Known Difficult Airway: No Mallampati Class: 1 Mouth Opening: Normal (> 3cm) Thyromental Distance: Greater than 3 cm Neck Range of Motion: Full ROM Neck Circumference: Normal Teeth Condition: Normal Dentition ASA Classification ASA Score: ASA 2 Emergency Case?: No NPO Status NPO Status: NPO Clears >2 hours, Solids >8 hours Anesthesia Plan Resuscitation Status: Full Code Anesthesia Technique: General Anesthesia Airway Planned: Natural Airway Monitors Used: Standard Monitors Preoperative Comments:: 36 yo male for pinning left index finger. Sig PMHx: daily smoker (tobacco/cannabis), occ EtOH. Denies major.
[2022-08-17 06:31] VITALS: BMI 26.7
[2022-08-17] MEDS: Lactated Ringers 1,000 ML 80 ML IV (06:45)
--- NOTE | 2022-08-17 07:27 | W.PM.DSUDISC ---
Date of service: 08/17/22 Time of Service: 07:27 Discharge Plan Disposition Patient Disposition: Home Condition: Good Discharge Details Reason For Visit: FX FINGER Attending Provider: Judson Gomez Primary Care Provider: None,None Home Meds and New Rx's Prescriptions: New hydrocodone-acetaminophen 5-325 mg tablet 1 tab PO Q6H PRN (Reason: pain) Qty: 4 0RF acetaminophen 500 mg tablet 500 mg PO Q6H PRN PRN (Reason: pain) Qty: 40 3RF ibuprofen 600 mg tablet 600 mg PO TID PRN (Reason: pain) Qty: 30 3RF Discharge Instructions Additional Instructions: Finger Fracture Fixation Discharge Instructions Activity: You should keep the hand elevated as much as possible for the first few days. You may use the other fingers as tolerated but avoid trying to do too much too soon. You may perform light activities with the splint in place. Dressing/Cast: Your splint should stay in place at all times. Do NOT get it wet. If it does get wet you may remove the dressings/splint and redress it, or call the office. Medications: - You should take Tylenol and Ibuprofen for baseline pain control. - You have been prescribed a stronger pain medication, Hydrocodone, for breakthrough pain. Follow-up: 7 days Referrals: Judson Gomez MD [ [facility] STAFF PHYSICIAN] - Activity:: Elevate Remove Dressings/Wound Care:: Do Not Remove Shower/Bathe:: Cover Discharge Orders Discharge Orders: Discharge Order (Routine); Ordered 08/17/22 Ordered By: Judson Gomez DS: Diagnosis Discharge Diagnosis (1) Closed mallet fracture of distal phalanx of finger of left hand: Status: Acute
[2022-08-17] MEDS: Bupivacaine 0.5% Pres-Free 30 ML VIAL (07:42)
--- NOTE | 2022-08-17 08:05 | DI.RAD_ITS ---
Exam(s) XR FINGER LT INDEX EXAM: XR FINGER LT INDEX CLINICAL HISTORY: Closed fracture of phalanx of left index finger TECHNIQUE: 2D and realtime digital imaging was performed. CONTRAST MATERIAL: Refer to procedure report. COMPARISON: CR XR FINGER LT INDEX from 08/10/2022 FINDINGS: Fluoroscopy was provided for Dr. Gomez during the performance of a reduction and internal fixatio n of the distal phalangeal fracture. Please refer to the procedure report for complete details. Ka,r=0.8 mGy IMPRESSION: RADIATION DOSE DELIVERED:
[2022-08-17 08:13] VITALS: BP 151/103; PULSE 83; RESP 18; TEMP 36.6; O2SAT 100
--- NOTE | 2022-08-17 08:31 | W.ANESPOSTOP ---
Postoperative Evaluation Date, Time and Location Date Performed: 08/17/22 Time Performed: 08:31 Patient Location: Day Surgery Unit Vital Signs Most Recent Imported Vital Signs: Most Recent Vital Signs Temp Pulse Resp BP Pulse Ox 36.6 C 83 18 151/103 H 100 08/17/22 08:13 08/17/22 08:13 08/17/22 08:13 08/17/22 08:13 08/17/22 08:13 Pain Score Most Recent Pain Score: Most Recent Pain Score Pain Level 0 08/17/22 08:13 Assessment Mental Status: Awake (Alert & Oriented to Patient Baseline) Airway and Respiratory Function: Patent airway with normal (patient baseline) respiratory exam Cardiovascular Function: Hemodynamically Stable Hydration Status: Adequately Hydrated Nausea & Vomiting: No Nausea or Vomiting Pain: Pain is tolerable per patient Peripheral Nerve Block: Patient did not receive a nerve block
[2022-08-17 08:43] VITALS: BP 121/97; PULSE 83; RESP 20; TEMP 36.8; O2SAT 97
[2022-08-17] MEDS: Acetaminophen 325 MG TAB 650 MG PO (08:49)
[2022-08-17] MEDS: Ketorolac 15 MG/ML VIAL IVP (08:49)
[2022-08-17] MEDS: Normal Saline Flush 10 ML SYR IV (08:52)
--- NOTE | 2022-08-17 12:56 | W.PM.OP ---
Date of service: 08/17/22 Time of Service: 08:15 Operative Note Operative Note DATE OF PROCEDURE: 08/17/22 PRE-OP DIAGNOSIS: Displaced intra-articular (mallet type) fracture of left index finger distal phalanx POST-OP DIAGNOSIS: same PROCEDURE: Closed reduction and percutaneous pinning of left index finger distal phalanx fracture SURGEON: Judson Gomez ANESTHESIA TYPE: General:No Airway Refer to Anesthesia Record PATHOLOGY: none sent COMPLICATIONS: None Patient was transported to: same day Patient's condition: stable Indications: I have seen Virgil in clinic for a displaced fracture of the left index finger distal phalanx, suffered at work. Given the displaced nature of the fracture and is large articular involvement as well as the attachment of the extensor tendon, I recommended we proceed with closed reduction and pinning. I reviewed the risks of the procedure to include, but not limited to, bleeding, pain, stiffness, malunion, nonunion, pin site infection irritation, loss of reduction. Despite these risks, the patient elected to proceed. Findings: The displaced fracture distal phalanx did not reduce with closed reduction alone. By pinning the fracture fragment and manipulating the position I was unable to reduce it into a much better alignment. The fracture piece was then pinned across into the palmar aspect of the distal phalanx and the DIP joint was held in an extended position with another, crossing the DIP joint. Procedure Description: Virgil was greeted in the preoperative holding area where the correct side was identified and marked. The consent was reviewed with the patient and signed. All questions were answered. Virgil was taken back to the operating room. The patient was placed into the supine position on the operating room table with the left arm on an arm board. All bony prominences were well padded. No prophylactic antibiotics were administered since this was a clean, elective hand surgical case. The left arm was then prepped with Chloraprep and draped in a standard fashion with extremity drape. A timeout to confirm correct identity, side and site, procedure, allergies, anesthesia, and medical concerns was performed. A digital block was then performed with 0.25% bupivacaine. Fluoroscopy was utilized to evaluate the reduction. Closed reduction with a volarly directed pressure against the fragment as well as a hyperextension of the DIP joint showed that it was still did not reduce fully. Therefore, I proceeded with a 0.025 inch K wire dorsally through the fragment. I was able to joyner the fragment and then manipulated into position. With rotation and manipulation of the fracture fragment with a K wire then met the fracture fragment with the distal phalanx in a slightly hyperextended position. I was then able to advance the K wire across through the palmar cortex of the distal phalanx. Manual pressure was applied to the fracture fragment and x-ray showed much improved alignment of the fracture fragment and congruity of the articular surface. With this then held in extension I then placed another K wire through the distal phalanx and into the middle phalanx securing the DIP joint and in extension. Fluoroscopy was utilized to confirm appropriate positioning of these pins. The pins were then cut and Umer balls placed just off of the skin. The finger was then dressed with Xeroform, 4 x 4's, AlumaFoam palmarly, and Coban. The patient tolerated the procedure well and was returned to the Same Day Surgery area in a stable condition suffering no known complication.
== END 2022-08-17 09:12 | disposition home or self-care (01) ==
PROVIDERS: Visit Provider Student in an Organized Health Care Education/Training Program
PROC: (CPT 26742; principal; 2022-08-17 07:30)
DX: S62.631A Displaced fracture of distal phalanx of left index finger, initial encounter for closed fracture (principal); M20.012 Mallet finger of left finger(s); W23.0XXA Caught, crushed, jammed, or pinched between moving objects, initial encounter; Y99.0 Civilian activity done for income or pay; S67.191A Crushing injury of left index finger, initial encounter
CPT/HCPCS: 26742; 73140; J1885; J2250; J2704

== ENCOUNTER 2022-08-21 08:45 | Outpatient (CLI) | payer OTHER, SELFPAY ==
--- NOTE | 2022-08-21 08:30 | DI.RAD_ITS ---
Exam(s) XR FINGER LT INDEX EXAM: XR FINGER LT INDEX INDICATION: LIF fx. COMPARISON: CR XR FINGER LT INDEX from 08/10/2022 XA XR FINGER LT INDEX from 08/17/2022 TECHNIQUE: 2D digital imaging was performed. One lateral view. FINDINGS: Two pins are again noted in the distal phalanx for fracture fixation. The alignment is unchanged. DATA REPOSITORY: RADIATION DOSE DELIVERED:
== END 2022-08-21 08:46 | disposition home or self-care (01) ==
LOC: DIORS 08:46
PROVIDERS: Visit Provider Physician Assistant
DX: S62.631D Displaced fracture of distal phalanx of left index finger, subsequent encounter for fracture with routine healing (principal); M20.012 Mallet finger of left finger(s); X58.XXXD Exposure to other specified factors, subsequent encounter
CPT/HCPCS: 73140

== ENCOUNTER 2022-08-28 10:55 | Outpatient (CLI) | payer OTHER, SELFPAY ==
--- NOTE | 2022-08-28 10:30 | DI.RAD_ITS ---
Exam(s) XR FINGER LT INDEX EXAM: XR FINGER LT INDEX CLINICAL HISTORY: S/P PINNING L INDEX FINGER. TECHNIQUE: 2D digital imaging was performed. COMPARISON: CR XR FINGER LT INDEX from 08/10/2022 CR XR FINGER LT INDEX from 08/21/2022 FINDINGS: 3 views Again noted are thetwo fixation pins, 1 lung to truly orientated through the DIP joint and the other transfixing the dorsal fracture fragment at the base of the distal phalanx. IMPRESSION: As above. DATA REPOSITORY: RADIATION DOSE DELIVERED:
== END 2022-08-28 10:56 | disposition home or self-care (01) ==
LOC: DIORS 10:55
PROVIDERS: Visit Provider Physician Assistant
DX: S62.631D Displaced fracture of distal phalanx of left index finger, subsequent encounter for fracture with routine healing (principal); M20.012 Mallet finger of left finger(s); X58.XXXD Exposure to other specified factors, subsequent encounter
CPT/HCPCS: 73140

== ENCOUNTER 2022-10-09 11:35 | Outpatient (CLI) | payer OTHER, SELFPAY ==
--- NOTE | 2022-10-09 10:45 | DI.RAD_ITS ---
Exam(s) XR FINGER LT INDEX EXAM: XR FINGER LT INDEX CLINICAL HISTORY: F/U L INDEX FINGER FX. TECHNIQUE: 2D digital imaging was performed. Three views. COMPARISON: None. FINDINGS: BONES: The previously noted pins have been removed. The fracture fragment at the dorsal base of the distal phalanx is not united and several millimeters. There is flexion at the DIP joint.. No bony destructive lesion is seen. JOINTS: No dislocation present. SOFT TISSUE: Normal. IMPRESSION: Previously noted fracture fragment at the base of the distal phalanx is nonunited and significantly s eparated. DATA REPOSITORY: RADIATION DOSE DELIVERED:
== END 2022-10-09 11:36 | disposition home or self-care (01) ==
LOC: DIORS 11:37
PROVIDERS: Visit Provider Physician Assistant
DX: M20.012 Mallet finger of left finger(s) (principal); S62.631D Displaced fracture of distal phalanx of left index finger, subsequent encounter for fracture with routine healing; X58.XXXD Exposure to other specified factors, subsequent encounter; W23.0XXD Caught, crushed, jammed, or pinched between moving objects, subsequent encounter
CPT/HCPCS: 73140

== ENCOUNTER 2022-10-13 09:30 | Day surgery (SDC) | payer OTHER, SELFPAY ==
[2022-10-13] VITALS (8 sets, daily range): BP systolic 119–152; BP diastolic 71–104; PULSE 81–91; RESP 12–18; TEMP 36.4–36.5; O2SAT 94–98; BMI 26.6
--- NOTE | 2022-10-13 10:18 | ANES.PREOP_ITS ---
General Info Date of Service Date Performed: 10/13/22 Height: 5 ft 8 in Weight: 79.3 kg Body Mass Index (BMI): 26.6 Surgical Procedure: Operation Date: 10/13/22 10:25 Proposed Procedure Side Surgeon p Closed Reduction & Pinning, LIF, Possible Open Left Judson Gomez MD Meds Allergies and Home Medications Allergies Allergy/AdvReac Type Severity Reaction Status Date / Time No Known Allergies Allergy Unverified 10/13/22 09:58 Home Medication Medication Instructions Recorded acetaminophen 500 mg tablet 500 mg PO Q6H PRN PRN pain #40 tabs 08/17/22 ibuprofen 600 mg tablet 600 mg PO TID PRN pain #30 tabs 08/17/22 hydrocodone 5 mg-acetaminophen 325 1 tab PO Q6H PRN severe pain #4 10/13/22 mg tablet tabs Current Visit Medications: Current Medications Generic Name Dose Route Start Last Admin Trade Name Freq PRN Reason Stop Dose Admin Acetaminophen 650 mg 10/13/22 07:35 Acetaminophen 325 Mg Tab PO 11/12/22 07:34 Q4H PRN PRN Hydrocodone Bitart/Acetaminophen 0 tab 10/13/22 07:35 Hydrocodone 5/Acetaminophen 325 Tab PO 11/12/22 07:34 Q3H PRN PRN Pain Ringer's Solution 1,000 mls @ 80 mls/hr 10/13/22 06:00 IV 11/11/22 23:59 INFUSION MARY IV Miscellaneous Supplies 1 each 10/13/22 06:00 Iv Access IV 11/11/22 23:59 DIRECTED MARY Sodium Chloride 0 ml 10/13/22 06:00 Normal Saline Flush 10 Ml Syr IV 11/11/22 23:59 PRN PRN Sodium Chloride 0 ml 10/13/22 06:00 Normal Saline 10 Ml Vial IJ 11/11/22 23:59 DIRECTED PRN Sterile Water 0 ml 10/13/22 06:00 Water,Injection,Sterile 10 Ml Vial IJ 11/11/22 23:59 DIRECTED PRN PFSH Active Problems Active Problems: Problem Status Onset Code Sprain of right index finger S63.610A Closed mallet fracture of distal phalanx of finger of left hand 08/10/22 S62.63 9A, M20.012 Medical History Medical History Chest injury Pt. states it was a muscle injury in his back Corneal abrasion, right Hx of fracture of finger (08/17/22) LIF Hx of fracture of finger (2021) RIF No significant past medical history Medical History Comments:: pt reports having what he thinks was a seizure over 20 years ago when he was experimenting with drugs and almost Surgical History Surgical History No significant past surgical history Tobacco Smoking/Tobacco Use Status: Current every day Tobacco Type: cigarettes Alcohol Alcohol Intake: current Alcohol intake frequency: holidays/special occasions only Substance Use Substance use: Daily Substance use type: marijuana Details: 10/13/22 - pt smoked cannabis 10/12/22 10/13/22 - pt smoked 2 cigarettes before coming into [facility] Vital Signs and Lab Results Vital Signs Most Recent Vital Signs in EMR: Most Recent Vital Signs Temp Pulse Resp BP Pulse Ox 36.5 C 90 16 152/96 H 98 10/13/22 09:48 10/13/22 09:48 10/13/22 09:48 10/13/22 09:48 10/13/22 09:48 Lab Results Blood Type / Crossmatch: No Data to Display Complete Blood Count: No Data to Display Complete Metabolic Panel: No Data to Display Liver Function Panel: No Data to Display Coagulation Panel: No Data to Display Cardiac Panel: No Data to Display Arterial Blood Gas: No Data to Display Venous Blood Gas: No Data to Display Pancreas Panel: No Data to Display Thyroid Panel: No Data to Display Infectious Disease: No Data to Display Blood Cultures: No Data to Display Toxicology Panel: No Data to Display Anesthesia Assessment and Plan Anesthesia History Personal History: No History of Anesthesia Complications Family History: No Family History of Anesthesia Complications Exercise Tolerance Exercise Tolerance: Metabolic Equivalents>4 Pertinent Negatives Pertinent Negatives: No Symptoms of GERD, No Major Cardiovascular Symptoms or Complaints, No Major Pulmonary Symptoms or Complaints and No History of CVA/TIA Cardiac & Pulmonary Exam Cardiac Exam: Normal S1/S2 Heart Sounds Pulmonary Exam: Clear Bilateral Breath Sounds Implantable Cardiac Device Does patient have a Pacemaker or an ICD?: No Airway Exam Known Difficult Airway: No Mallampati Class: 1 Mouth Opening: Normal (> 3cm) Thyromental Distance: Greater than 3 cm Neck Range of Motion: Full ROM Neck Circumference: Normal Teeth Condition: Normal Dentition ASA Classification ASA Score: ASA 2 Emergency Case?: Yes NPO Status NPO Status: NPO Clears >2 hours, Solids >8 hours Anesthesia Plan Resuscitation Status: Full Code Anesthesia Technique: General Anesthesia Airway Planned: Endotracheal Tube Monitors Used: Standard Monitors
--- NOTE | 2022-10-13 10:23 | W.PM.DSUDISC ---
Date of service: 10/13/22 Time of Service: 10:48 Discharge Plan Disposition Patient Disposition: Home Condition: Good Discharge Details Reason For Visit: Left index finger mallet fracture Attending Provider: Judson Gomez Primary Care Provider: None,None Home Meds and New Rx's Prescriptions: New hydrocodone-acetaminophen 5-325 mg tablet 1 tab PO Q6H PRN (Reason: severe pain) Qty: 4 0RF Rx Instructions: Take one tablet up to every 6 hours as needed for severe postoperative pain Continued acetaminophen 500 mg tablet 500 mg PO Q6H PRN PRN (Reason: pain) Qty: 40 3RF ibuprofen 600 mg tablet 600 mg PO TID PRN (Reason: pain) Qty: 30 3RF Discharge Instructions Additional Instructions: Finger Fracture Fixation Discharge Instructions Activity:?You should keep the hand elevated as much as possible for the first few days.? You may use the other fingers as tolerated but avoid trying to do too much too soon.? You may perform light activities with the splint in place. Dressing/Cast:?Your splint should stay in place at all times.? Do NOT get it wet.? If it does get wet you may remove the dressings/splint and redress it, or call the office. Medications: -?You should take Tylenol and Ibuprofen for baseline pain control. - You have been prescribed a stronger pain medication, Hydrocodone, for breakthrough pain. Follow-up:?7 days Referrals: Judson Gomez MD [ [facility] STAFF PHYSICIAN] - Equipment/Supplies: Splint Activity:: Elevate Remove Dressings/Wound Care:: Do Not Remove Shower/Bathe:: Cover Diet:: As Tolerated Discharge Orders Discharge Orders: Discharge Order (Routine); Ordered 10/13/22 Ordered By: Viridiana Gonzales
[2022-10-13] MEDS: Lactated Ringers 1,000 ML 80 ML IV (10:32)
[2022-10-13] MEDS: Bupivacaine 0.5% Pres-Free 30 ML VIAL (12:06)
--- NOTE | 2022-10-13 13:12 | DI.RAD_ITS ---
Exam(s) XR HAND LT LIMITED EXAM: XR HAND LT LIMITED CLINICAL HISTORY: CLOSED REDUCTIO AND PINNING LIF TECHNIQUE: 2D and realtime digital imaging was performed. CONTRAST MATERIAL: Refer to procedure report. COMPARISON: CR XR FINGER LT INDEX from 10/09/2022 FINDINGS: Fluoroscopy was provided for Dr. Gomez during the performance of a percutaneous pin of the distal phalangeal fracture. Please refer to the procedure report for complete details. Ka,r=1.44 mGy IMPRESSION: RADIATION DOSE DELIVERED:
--- NOTE | 2022-10-13 13:44 | W.ANESPOSTOP ---
Postoperative Evaluation Date, Time and Location Date Performed: 10/13/22 Time Performed: 13:45 Patient Location: PACU Vital Signs Most Recent Imported Vital Signs: Most Recent Vital Signs Temp Pulse Resp BP Pulse Ox 36.4 C L 85 16 136/104 H 97 10/13/22 13:35 10/13/22 13:35 10/13/22 13:35 10/13/22 13:35 10/13/22 13:35 Pain Score Most Recent Pain Score: Most Recent Pain Score Pain Level 0 10/13/22 13:35 Assessment Mental Status: Awake (Alert & Oriented to Patient Baseline) Airway and Respiratory Function: Patent airway with normal (patient baseline) respiratory exam Cardiovascular Function: Hemodynamically Stable Hydration Status: Adequately Hydrated Nausea & Vomiting: No Nausea or Vomiting Pain: Pt. Denies Any Pain Peripheral Nerve Block: Regional nerve block not resolved at time of post operative discharge
--- NOTE | 2022-10-13 19:30 | W.PM.OP ---
Date of service: 10/13/22 Time of Service: 13:30 Operative Note Operative Note DATE OF PROCEDURE: 10/13/22 PRE-OP DIAGNOSIS: Displaced fracture of the base of the left index finger distal phalanx with extensor lag POST-OP DIAGNOSIS: same PROCEDURE: Open reduction and fixation of left index finger distal phalanx fracture with DIP joint cross pinning SURGEON: Judson Gomez SYSTEMS COORDINATOR: Viridiana Gonzales ANESTHESIA TYPE: General LMA/ETT Refer to Anesthesia Record ESTIMATED BLOOD LOSS: 5 TOURNIQUET TIME: 0 Indications: Virgil is a 37-year-old who suffered an injury at work resulting in a displaced articular fracture of the distal phalanx of the left index finger with involvement of the extensor tendon. He was initially pinned with acceptable alignment. The pins were removed. Unfortunate, and his future follow-up visit he had displacement of this fracture with a notable droop of the index finger. Therefore, I recommended we proceed back to the operating room for open reduction versus closed reduction of this fracture fragment and pinning of the DIP joint. I once again reviewed the risk with him to include infection, pain, stiffness, loss of extension function, weakness, nail deformity, need for repeat procedures. Findings: A closed reduction was unable to fully reduce the fracture fragment and therefore an open reduction was performed. The fracture was at most 2 mm in width and was quite friable and fragmented upon manipulation. It was unable to be fully reduced into its host location. I reapproximated the bony fracture fragments which included attachments to the extensor tendon to the periosteum and soft tissues of the distal phalanx using a Vicryl and maintained reduction of the DIP joint with a single 0.062 inch K wire across the DIP joint. Procedure Description: Virgil was greeted the preoperative holding area. His identity was confirmed the correct site was identified and marked. The consent was reviewed the patient and signed. History physical was updated. He was taken to the operating room placed in the supine position on the stretcher with the left arm on an armboard. The left hand was then prepped ChloraPrep. No prophylactic antibiotics were necessary. A timeout was performed for safe surgery. Utilizing fluoroscopy a closed reduction was attempted. I was really unable to maneuver the fracture fragment underneath the distal phalanx. I then placed a percutaneous 0.035 inch K wire through the fracture fragment to manipulate it. However, once again, I was unable to maneuver the fracture fragment into a reduced position. Therefore, made a decision to open up the distal phalanx. A digital block was then performed utilizing 1% lidocaine with epinephrine. A Z-type incision was made overlying the DIP joint with a transverse section within the extensor creases. I was able to identify the fracture fragment and its extension and tendon attachment. This piece was extremely small. It is no more than 2 mm in width. There was some articular surface seen attached to it. The fracture location was identified and was cleaned. There is no significant block to reduction. However, the fracture piece was fragmented and with manipulation was unable to be controlled due to its small size. Utilizing direct visualization as well as the fluoroscopy I was unable to fully reduce this fracture fragment into its host bed. However, I was able to make it into a much better position with bony contact of the distal phalanx. However, is unable to hold it. I tried a blocking K wire as well as a K wire through the fracture fragment but was unable to hold the small piece. Therefore, I reduced the distal phalanx and secured this with a single 0.062 inch K wire across the DIP joint. Before placing this K wire I removed his fingernail. There is a secondary nail growing underneath it and the position of the nail was blocking access to the distal end of the distal phalanx. This was performed utilizing a Corinth elevator the nail off the underlying growing nail and off the remaining aspect of the sterile matrix. Then, I utilized 0 Vicryl to grab extensor tendon with bony fragments attached and so this down to the periosteum and collateral tissues of the DIP joint. This reduced the bony fragment with the extensor tendon down to the distal phalanx. Fluoroscopy showed that the bony fragments were adjacent to the distal phalanx although not completely reduced. The DIP joint was fully reduced and concentric. The wound was then thoroughly irrigated. The dorsal skin was closed with a #4-0 nylon. The K wire was cut and a Umer ball was placed on the end for protection. Wound was dressed with a soft dressing around the tip of the finger, covering the K wire and extended down to the hand.
== END 2022-10-13 14:35 | disposition home or self-care (01) ==
PROVIDERS: Visit Provider Student in an Organized Health Care Education/Training Program
PROC: (CPT 26765; principal; 2022-10-13 10:15)
DX: S62.631A Displaced fracture of distal phalanx of left index finger, initial encounter for closed fracture (principal); M20.012 Mallet finger of left finger(s); L60.8 Other nail disorders; X58.XXXA Exposure to other specified factors, initial encounter
CPT/HCPCS: 26765; 11750; 73120; J1100; J2250; J2405; J2704; J3010

== ENCOUNTER 2022-10-26 15:53 | Outpatient (CLI) | payer OTHER, SELFPAY ==
--- NOTE | 2022-10-26 09:45 | DI.RAD_ITS ---
Exam(s) XR FINGER LT INDEX EXAM: XR FINGER LT INDEX CLINICAL HISTORY: S/P PINNING. TECHNIQUE: 2D digital imaging was performed. Three views. COMPARISON: October 30 intraoperative images FINDINGS: The pin remains in place through the distal and middle phalanges for fracture fixation. The alignmen t appears unchanged. DATA REPOSITORY: RADIATION DOSE DELIVERED:
== END 2022-10-26 15:54 | disposition home or self-care (01) ==
LOC: DIORS 15:54
PROVIDERS: Visit Provider Physician Assistant
DX: M20.012 Mallet finger of left finger(s) (principal); S62.639D Displaced fracture of distal phalanx of unspecified finger, subsequent encounter for fracture with routine healing; X58.XXXD Exposure to other specified factors, subsequent encounter
CPT/HCPCS: 73140

== ENCOUNTER 2022-11-16 15:50 | Outpatient (CLI) | payer OTHER, SELFPAY ==
--- NOTE | 2022-11-16 15:30 | DI.RAD_ITS ---
Exam(s) XR FINGER LT INDEX EXAM: XR FINGER LT INDEX CLINICAL HISTORY: f/u L index finger mallet frx. TECHNIQUE: 2D digital imaging was performed. COMPARISON: CR XR FINGER LT INDEX from 10/26/2022 FINDINGS: 3 views Orthopedic pin again noted across the DIP joint of the 2nd-index finger. DIP joint is not yet fused. Appearance is unchanged from previous. PIP joint appears unremarkable. There is no radiographic evidence of osteomyelitis. IMPRESSION: Stable appearance. DATA REPOSITORY: RADIATION DOSE DELIVERED:
== END 2022-11-16 15:51 | disposition home or self-care (01) ==
LOC: DIORS 15:51
PROVIDERS: Visit Provider Student in an Organized Health Care Education/Training Program
DX: M20.012 Mallet finger of left finger(s) (principal); S62.631D Displaced fracture of distal phalanx of left index finger, subsequent encounter for fracture with routine healing; X58.XXXD Exposure to other specified factors, subsequent encounter
CPT/HCPCS: 73140

== ENCOUNTER 2022-12-03 09:32 | Outpatient (CLI) | payer OTHER, SELFPAY ==
--- NOTE | 2022-12-03 10:05 | DI.RAD_ITS ---
Exam(s) XR FINGER LT INDEX EXAM: XR FINGER LT INDEX CLINICAL HISTORY: f/u Left index finger pin removal. TECHNIQUE: 2D digital imaging was performed. COMPARISON: CR XR FINGER LT INDEX from 10/09/2022 CR XR FINGER LT INDEX from 10/26/2022 CR XR FINGER LT INDEX from 11/16/2022 FINDINGS: 3 views The lung to truly orientated pin is been removed. The dorsal fracture fragment at the dorsal base of the distal phalanx is again noted. This is adjacent to the parent bone defect at the base of the di stal phalanx. No radiographic evidence of osteomyelitis. IMPRESSION: As above. DATA REPOSITORY: RADIATION DOSE DELIVERED:
== END 2022-12-03 09:33 | disposition home or self-care (01) ==
PROVIDERS: Visit Provider Student in an Organized Health Care Education/Training Program
DX: M20.012 Mallet finger of left finger(s) (principal); S62.631D Displaced fracture of distal phalanx of left index finger, subsequent encounter for fracture with routine healing; X58.XXXD Exposure to other specified factors, subsequent encounter
CPT/HCPCS: 73140

== ENCOUNTER 2022-12-17 11:16 | Outpatient (CLI) | payer OTHER, SELFPAY ==
--- NOTE | 2022-12-17 10:15 | DI.RAD_ITS ---
Exam(s) XR FINGER LT INDEX EXAM: XR FINGER LT INDEX EXAM DATE/TIME: CLINICAL HISTORY: F/U FRACTURE. TECHNIQUE: 2D digital imaging was performed of the left finger. Three views were obtained. PA/AP, oblique, and lateral views were obtained. COMPARISON: None. FINDINGS: BONES: Given the slight changes in the obliquity, there does not appear to be any significant change in appearance of the fracture involving the base of the distal phalanx. The bones are osteopenic. T his likely reflects decreased use. No bony destructive lesion is seen. JOINTS: No dislocation is present. SOFT TISSUE: Normal. IMPRESSION: Stable fracture. DATA REPOSITORY: RADIATION DOSE DELIVERED:
== END 2022-12-17 11:17 | disposition home or self-care (01) ==
LOC: DIORS 11:16
PROVIDERS: Visit Provider Physician Assistant
DX: S62.631D Displaced fracture of distal phalanx of left index finger, subsequent encounter for fracture with routine healing; X58.XXXD Exposure to other specified factors, subsequent encounter; W23.0XXD Caught, crushed, jammed, or pinched between moving objects, subsequent encounter
CPT/HCPCS: 73140

== ENCOUNTER 2023-04-08 13:55 | Outpatient (CLI) | payer OTHER, SELFPAY ==
--- NOTE | 2023-04-08 11:15 | DI.RAD_ITS ---
Exam(s) XR FINGER LT INDEX EXAM: XR FINGER LT INDEX CLINICAL HISTORY: LIF Fx. TECHNIQUE: 2D digital imaging was performed. COMPARISON: CR XR FINGER LT INDEX from 12/17/2022 FINDINGS: Two views. Again noted is a previously described fracture site at the base of the distal phalanx. The dorsally located fragment is more approximated to the parent bone implying that there has been some healing al though does not appear to have been truly incorporated back into the parent bone. There is mild-mode rate uniform narrowing of the DIP joint seen on the frontal view. Remainder of the phalanges appear unremarkable. IMPRESSION: Mild healing. DATA REPOSITORY: RADIATION DOSE DELIVERED:
== END 2023-04-08 13:56 | disposition home or self-care (01) ==
LOC: DIORS 13:56
PROVIDERS: Visit Provider Physician Assistant
DX: M20.012 Mallet finger of left finger(s) (principal); S62.639D Displaced fracture of distal phalanx of unspecified finger, subsequent encounter for fracture with routine healing; X58.XXXD Exposure to other specified factors, subsequent encounter
CPT/HCPCS: 73140

== ENCOUNTER 2023-08-31 17:51 | Emergency (ER) | payer SELFPAY ==
[2023-08-31 17:52] VITALS: BP 152/98; PULSE 99; RESP 18; TEMP 37.2; O2SAT 93
--- NOTE | 2023-08-31 18:23 | ED.GENADUL_ITS ---
Discharge Plan Disposition Patient Disposition: Home Condition: Stable Discharge Details Clinical Impression: Back muscle spasm, Back pain Primary Care Provider: Unknown,Unknown ED Provider: Chelle Natarajan Home Meds and New Rx's Prescriptions: New prednisone 10 mg tablets,dose pack 10 mg PO DIRECTED Qty: 1 0RF Rx Instructions: see taper instructions cyclobenzaprine 10 mg tablet 10 mg PO TID PRNQty: 14 0RF ibuprofen 800 mg tablet 800 mg PO TID PRNQty: 14 0RF No Action acetaminophen 500 mg tablet 500 mg PO Q6H PRN PRN (Reason: pain) Qty: 40 3RF ibuprofen 600 mg tablet 600 mg PO TID PRN (Reason: pain) Qty: 30 3RF Discharge Instructions Instructions: Muscle Spasm (ED), Back Pain (ED) Additional Instructions: Avoid heavy lifting until back pain resolves. Return to the Emergency Department with any worsening symptoms or any other concerns. Stand Alone Forms: Work Release Discharge Data Discharge Date/Time-TO BE ENTERED AT DEPARTURE: 08/31/23 18:49 HPI General Date/Time Provider Initiated Documentation: 08/31/23 18:14 . HPI Narrative: The patient is a 37-year-old male with a prior history of back spasm who comes the emergency department for back pain. 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 Reports his back has been bothering him for the past 3 days worse with any little movement. Reports this has been steadily getting worse with spasm worse on the left side. Denies any falls, direct blows to the back. Reports he is never needed surgery or injections to his spine. Reports he has been taking ibuprofen which has not helped. Denies any loss of urine or bowel control. Denies any numbness or tingling sensation or any weakness. Denies fevers or chills. Related Data Home Medications Medication Instructions Recorded Confirmed acetaminophen 500 mg tablet 500 mg PO Q6H PRN PRN pain #40 tabs 08/17/22 07/02/23 ibuprofen 600 mg tablet 600 mg PO TID PRN pain #30 tabs 08/17/22 07/02/23 cyclobenzaprine 10 mg tablet 10 mg PO TID PRN #14 tabs 08/31/23 ibuprofen 800 mg tablet 800 mg PO TID PRN #14 tabs 08/31/23 prednisone 10 mg tablets in a dose 10 mg PO DIRECTED #1 dose pk 08/31/23 pack Previous Rx's Medication Instructions Recorded acetaminophen 500 mg tablet 500 mg PO Q6H PRN PRN pain #40 tabs 08/17/22 ibuprofen 600 mg tablet 600 mg PO TID PRN pain #30 tabs 08/17/22 cyclobenzaprine 10 mg tablet 10 mg PO TID PRN #14 tabs 08/31/23 ibuprofen 800 mg tablet 800 mg PO TID PRN #14 tabs 08/31/23 prednisone 10 mg tablets in a dose 10 mg PO DIRECTED #1 dose pk 08/31/23 pack Allergies Allergy/AdvReac Type Severity Reaction Status Date / Time No Known Allergies Allergy Unverified 07/01/23 09:57 General Stated Complaint: Nk/Back Pain MARSHA: 3 Review of Systems Narrative: Review of systems are negative except as mentioned. Exam Narrative Exam Narrative: The patient is in no acute distress. No midline C-spine tenderness is noted to palpation. Heart is regular in rate and rhythm. Patient does have mild wheezes. Abdomen is soft and nontender to palpation throughout. The patient has equal posterior tibialis pulses. There is no overlying erythema or increased warmth to touch noted to the patient's back. The patient has left paraspinal tenderness noted to palpation of the lumbar region with spasm. No thoracic spine tenderness is noted to palpation at midline. The patient has equal strength and sensation to bilateral lower extremities. Sensation is intact in all dermatomes to bilateral lower extremities. Patient has negative straight leg raise bilaterally. The patient has intact and equal strength to bilateral thigh abduction, knee extension, ankle dorsiflexion, great toe pointing up, knee flexion and toe plantarflexion. Course Vital Signs Vital signs: Vital Signs Temperature 37.2 C 08/31/23 17:52 Pulse 99 H 08/31/23 17:52 Respiratory Rate 18 08/31/23 17:52 Blood Pressure 152/98 H 08/31/23 17:52 Pulse Oximetry 93 08/31/23 17:52 Temperature 37.2 C 08/31/23 17:52 Temperature Source Tympanic 08/31/23 17:52 Pulse 99 H 08/31/23 17:52 Respiratory Rate 18 08/31/23 17:52 Respiratory Effort Normal, Non-Labored 08/31/23 18:10 Blood Pressure 152/98 H 08/31/23 17:52 Blood Pressure Position Sitting 08/31/23 17:52 Pulse Oximetry 93 08/31/23 17:52 Oxygen Delivery Method Room Air 08/31/23 17:52 Oxygen Flow Rate 0 08/31/23 17:52 Pain Level 10 08/31/23 17:52 Medical Decision Making The patient's physical exam is benign without any focal deficit which is reassuring. For this reason the patient does not require emergent imaging studies. The patient has had similar type back problems in the past and for this I recommended conservative management with ibuprofen, Flexeril and predniso ne. The patient agrees. A prescription is to be sent to his preferred pharmacy. I have also provided a work note for him for the next 2 days. In the meantime he is urged to return to the emergency department with any worsening symptoms or any other concerns. The patient has informed us that his pharmacy is now closed and requested medication to go so he will get Flexeril, ibuprofen and prednisone before he leaves. Quality:SDOH Health Related Social Needs: No Data to Display PFSH All Active Problems Back pain (Acute) Back muscle spasm (Acute) Sprain of right index finger (Acute) Closed mallet fracture of distal phalanx of finger of left hand (Acute 08/10/22) S/P closed reduction and percutaneous pinnin08/17/2022 S/P open reduction with percutaneous pinning due to nonunion/displacement: 10/13/2022 Medical History Hx of fracture of finger (2021) RIF Hx of fracture of finger (08/17/22) LIF Corneal abrasion, right Chest injury Pt. states it was a muscle injury in his back No significant past medical history Surgical History No significant past surgical history Social History Smoking/Tobacco Use Status: Current every day Tobacco Type: cigarettes Smoking risk assessment performed?: Yes Alcohol Intake: current Alcohol Intake frequency: holidays/special occasions only Drug use: Daily Substance use type: marijuana Details: 10/13/22 - pt smoked cannabis 10/12/22 10/13/22 - pt smoked 2 cigarettes before coming into [facility] Housing: apartment Do you feel safe at home: Yes Do you feel safe in your relationship?: Yes
[2023-08-31] MEDS: predniSONE 20 MG TAB 60 MG PO (18:56)
[2023-08-31] MEDS: Ibuprofen 800 MG TAB PO (18:56)
[2023-08-31] MEDS: Cyclobenzaprine 10 MG TAB PO (18:57)
== END 2023-08-31 18:49 | disposition home or self-care (01) ==
LOC: ER 18:48
PROVIDERS: Emergency Provider Emergency Medicine
DX: M54.50 Low back pain, unspecified (principal); M62.830 Muscle spasm of back; X50.0XXA Overexertion from strenuous movement or load, initial encounter
CPT/HCPCS: 99283; J7512